=== PATIENT | male | born 1990 ===

== ENCOUNTER 2021-07-01 07:28 | Emergency (ER) | payer SELFPAY ==
[2021-07-01 07:33] VITALS: BP 116/71
--- NOTE | 2021-07-01 10:28 | Emergency Department Report ---
ED General Adult HPI - General Chief complaint: Neck Pain/Injury Stated complaint: NECK SWOLLEN RT SIDE Time Seen by Provider: 07/01/21 10:11 Source: patient Mode of arrival: Ambulatory Limitations: No Limitations - History of Present Illness Initial comments: 30-year-old male patient presents with complaints of right-sided neck pain, swelling, and itching x2 days. Patient states he was stung by a bee. He denies any dysphagia, chest pain, shortness of breath/wheezing, cough, or fever/chills/sweats. He states he has not taking any OTC medications for his symptoms. He denies any past medical history -: Sudden - Related Data Previous Rx's Medication Instructions Recorded Last Taken Type Loratadine [Claritin] 10 mg PO QDAY 7 Days #7 tablet 07/01/21 Unknown Rx Triamcinolone Acetonide 15 gm TP TID PRN 7 Days #1 07/01/21 Unknown Rx oint...g. predniSONE [Deltasone] 20 mg PO BID 3 Days #5 tab 07/01/21 Unknown Rx Allergies Allergy/AdvReac Type Severity Reaction Status Date / Time No Known Allergies Allergy Unverified 07/01/21 07:29 ED Review of Systems ROS: Stated complaint: NECK SWOLLEN RT SIDE Other details as noted in HPI Constitutional: denies: chills, fever, malaise ENT: denies: throat pain Respiratory: denies: cough, shortness of breath Cardiovascular: denies: chest pain Skin: change in color Neurological: denies: numbness, paresthesias Hematological/Lymphatic: denies: swollen glands ED Past Medical Hx - Past Medical History Previous Medical History?: No - Surgical History Past Surgical History?: No - Social History Smoking Status: Current Every Day Smoker Substance Use Type: None - Medications Home Medications: Home Medications Medication Instructions Recorded Confirmed Last Taken Type Loratadine [Claritin] 10 mg PO QDAY 7 Days #7 tablet 07/01/21 Unknown Rx Triamcinolone Acetonide 15 gm TP TID PRN 7 Days #1 07/01/21 Unknown Rx oint...g. predniSONE [Deltasone] 20 mg PO BID 3 Days #5 tab 07/01/21 Unknown Rx ED Physical Exam - General Limitations: No Limitations General appearance: alert, in no apparent distress - Head Head exam: Present: atraumatic - Eye Eye exam: Present: normal appearance - ENT ENT exam: Present: normal orophraynx - Expanded ENT Exam Expanded Mouth exam: Present: tongue normal. Absent: trismus - Neck Neck exam: Present: full ROM, other (Mild swelling noted to right side of neck with overlying mild erythema consistent with insect bite). Absent: tenderness - Respiratory Respiratory exam: Absent: respiratory distress - Cardiovascular Cardiovascular Exam: Present: regular rate, normal rhythm. Absent: systolic murmur, diastolic murmur, rubs, gallop - Neurological Exam Neurological exam: Present: alert, oriented X3 - Psychiatric Psychiatric exam: Present: normal affect, normal mood - Skin Skin exam: Present: warm, dry, intact, normal color. Absent: rash ED Course Vital Signs 07/01/21 07:31 Temperature 98.5 F Pulse Rate 62 Respiratory 16 Rate Blood Pressure 116/71 O2 Sat by Pulse 96 Oximetry ED Medical Decision Making - Medical Decision Making 30-year-old male patient presents with complaints of right-sided neck pain, swelling, and itching x2 days. Patient states he was stung by a bee. He denies any dysphagia, chest pain, shortness of breath/wheezing, cough, or fever/chills/sweats. He states he has not taking any OTC medications for his symptoms. He denies any past medical history Exam consistent with allergic reaction to insect bite. Will treat with triamcinolone, Claritin, and prednisone. Discussed signs and symptoms that should prompt immediate return to the emergency department in detail with patient who verbalized understanding. He is well-appearing, his vitals are within normal limits, he is stable for discharge home. Patient to follow-up with his primary care doctor in 3 to 5 days. He states understanding of the plan of care denies any further questions at this time Critical care attestation.: If time is entered above; I have spent that time in minutes in the direct care of this critically ill patient, excluding procedure time. ED Disposition Clinical Impression: Allergic reaction Disposition: 01 HOME / SELF CARE / HOMELESS Is pt being admited?: No Condition: Stable Instructions: Contact Dermatitis, Insect Bite, Adult Prescriptions: Loratadine [Claritin] 10 mg PO QDAY 7 Days #7 tablet predniSONE [Deltasone] 20 mg PO BID 3 Days #5 tab Triamcinolone Acetonide 15 gm TP TID PRN 7 Days #1 oint...g. PRN Reason: Itching Referrals: PRIMARY CARE, [Primary Care Provider] - 3-5 Days Forms: Work/School Release Form(ED) Time of Disposition: 10:25
== END 2021-07-01 10:36 | disposition home or self-care (01) ==
LOC: ED 07:28
DX: T78.40XA Allergy, unspecified, initial encounter (principal); F17.200 Nicotine dependence, unspecified, uncomplicated; Z79.899 Other long term (current) drug therapy; X58.XXXA Exposure to other specified factors, initial encounter
CPT/HCPCS: 99282